=== PATIENT | female | born 1990 | race Caucasian/White ===

== ENCOUNTER 2020-02-19 01:46 | Emergency (ER) | payer OTHER ==
[~2020-02-19] VITALS: Ht 160 cm; Wt 82.1 kg
[2020-02-19 02:07] VITALS: Ht 160 cm; Wt 82.1 kg
[2020-02-19 03:47] VITALS: BP 117/62
== END 2020-02-19 03:47 | disposition home or self-care (01) ==
LOC: ED 01:46
DX: R20.2 Paresthesia of skin (principal); M79.602 Pain in left arm